=== PATIENT | female | born 1970 | race Caucasian/White ===

== ENCOUNTER 2024-07-06 13:58 | Emergency (ER) | payer BC, SELFPAY ==
[2024-07-06 14:08] VITALS: BP 126/84; PULSE 79; RESP 18; TEMP 36.5; O2SAT 98
--- OUTSIDE RECORDS SUMMARY | 2024-07-06 14:36 | XMS_ITS | Data Portability ---
Author Organization [facility] LAURENHortensia Address [address] [place] [address] Assessment No assessment recorded. Plan of Treatment Reminders Order Date Submit Date Provider Last Modified By Organization Details Last Modified Time Details Appointments None recorded. Lab SARS CoV 2 RNA (COVID-19 ), QL, dancing teacher-PCR, respirato ry specimen - Ligu[place] location please-14 45 2019 020 [facility] (Lab), [address] [place], [address], 0 05:34:04 SARS CoV 2 RNA (COVID-19 ), QL, dancing teacher-PCR, respirato ry specimen - hawi @ 1230 on 12/[email or web address] [place] [address] (Lab), [address], [place], [address], 0 14:43:30 vaginal pathogens panel, JONI+probe , vaginal fluid 2023 024 [facility], [address] [facility], [address], [place], [address], 4 14:14:58 cytology report, thin prep, smear or scraping, cervical or vaginal 2023 024 [facility], [address] [facility], [address], [place], [address], 4 14:13:35 Referral None recorded. Procedures None recorded. Surgeries None recorded. Imaging MAMMO, screening , digital, bilateral 2023 [facility] ([facility]), [address] [place], [address], 4 17:48:17 Medication Orders Prempro 0.45 mg-1.5 mg tablet 2023 024 [facility], [address] [place], [address], 4 11:45:40 conjugate d estrogens 0.625 mg/gram vaginal cream [address] [address] [facility], [address] [place], [address], 4 16:45:08 Patient TargetsNo targets recorded. Patient Instructions Encounter Date Encounter Id Patient Instructions Last Modified By Organization Details Last Modified Time 12/21/2019 [id number] Reviewed the following recommendations: -Stay home and separate from others as much as possible. -Monitor your symptoms and seek medical attention for trouble breathing, persistent chest pain, confusion, or bluish lips or face. -Wear a mask if you must be around other people. -Wash your hands often for 20 seconds with soap and water and clean high-touch surfaces daily -You may discontinue home isolation if your symptoms are improving, it has been 10 days since symptoms started, and you have been fever free for at least 3 days. [email or web address] Not available 12/21/2019 14:42:50 09/01/2023 [id number] Attending Physician Attestation I personally saw and examined the patient with the resident. I have reviewed the documentation and agree with the history, physical findings, work-up, and medical decision making as recorded. Jasbir Adler MD [email or web address] Not available 09/01/2023 11:10:13 Reason for Referral None Reported. Results Created Date Observation Date Name Description Value Unit Range Abnormal Flag Note LastModifiedBy Organization Detail LastModifiedTime 12/13/19 20 12/13/2019 SARS CoV 2 RNA (COVI D-19) , QL, dancing teacher-P CR, respi rator y speci men sars - cov - 2 PCR NEGATI VE mL Not Available [facility] (Lab) [address] [place], [address], 12/15/2019 05:34:04 12/13/19 20 12/13/2019 SARS CoV 2 RNA (COVI D-19) , QL, dancing teacher-P CR, respi rator y speci men covidcom1 COMME NTS: This assay is desig franky to detec t the RdRp and N genes of SARS- CoV-2 using nucle ic acid ampli ficat ion. A negat christine resul t does not precl ude the possi bilit y of 2019- nCoV infec tion since the adequ acy of sampl e colle ction and/o r low viral burde n may resul t in the prese nce of viral nucle ic acids level s below the bart tical sensi tivit y of this test metho d. Not Available [facility] (Lab) [address] [facility], [place], [address], 12/15/2019 05:34:04 12/13/19 20 12/13/2019 SARS CoV 2 RNA (COVI D-19) , QL, dancing teacher-P CR, respi rator y speci men covidcom2 Posit christine resul ts are indic ative of the prese nce of SARS- CoV-2 RNA and do not rule out bacte rial infec tion or co-in fecti on with other virus es. Not Available [facility] (Lab) [address] [facility], [place], [address], 12/15/2019 05:34:04 12/13/19 20 12/13/2019 SARS CoV 2 RNA (COVI D-19) , QL, dancing teacher-P CR, respi rator y speci men covidcom3 Test resul ts shoul d be used along with other clini alysia obser vatio ns, patie nt histo ry, epide miolo gical infor matio n and labor atory data in eliel ramirez the diagn osis. Not Available [facility] (Lab) [address] [place], [address], 12/15/2019 05:34:04 12/13/19 20 12/13/2019 SARS CoV 2 RNA (COVI D-19) , QL, dancing teacher-P CR, respi rator y speci men covidcom4 This test has recei leonel FDA Emerg ency Use Autho rizat ion and has been verif ied by [facility] . This test is only autho rized for the durat ion of the decla ratio n and the circu mstan cameron that exist to justi fy the autho rizat ion of the emerg ency use of in vitro diagn ostic tests for the detec tion of SARS- CoV-2 virus and/o r diagn osis of COVID -19 infec tion under secti on 564 (b) (1) of the Act. 11 U.S.C . 360bb b-3 (b) (1), unles s the autho rizat ion is termi nated or revok ed soone r. Not Available [facility] (Lab) [address] [place], [address], 12/15/2019 05:34:04 12/13/19 20 12/13/2019 SARS CoV 2 RNA (COVI D-19) , QL, dancing teacher-P CR, respi rator y speci men covidcom5 [facility] at[facility] is certi fied under CLIA- 88 as quali fied to perfo rm high compl exity testi ng. This testi ng was perfo rmed in the [facility] [place] [address] (CLIA Licen se #[id number] 5, CAP #[id number], AU-ID #[id number]). Not Available [facility] (Lab) [address] [place], [address], 12/15/2019 05:34:04 12/13/19 20 12/13/2019 SARS CoV 2 RNA (COVI D-19) , QL, dancing teacher-P CR, respi rator y speci men covidcom6 Facts heet for healt hcare provi ders: https ://ww w.fda .gov/ media /1362 56/do wnloa d Facts heet for patie nts: https ://ww w.fda .gov/ media /1362 57/do wnloa d Not Available [facility] (Lab) [address], [place], [address], 12/15/2019 05:34:04 09/01/19 24 09/03/2023 NUSWA B VAGIN ITIS PLUS (VG+) atopobium vaginae Modera te - 1 score Not Available [facility] ([facility]) [address] [facility], [place], [address], 09/03/2023 14:14:58 09/01/19 24 09/03/2023 NUSWA B VAGIN ITIS PLUS (VG+) bvab 2 Low - 0 score Not Available [facility] ([facility]) [address] [facility], [place], [address], 09/03/2023 14:14:58 09/01/19 24 09/03/2023 NUSWA B VAGIN ITIS PLUS (VG+) megasphaera 1 Low - 0 score Calcu late total score by summer g the 3 indiv idual bacte rial vagin osis (BV) marke r score s toget her. Total score is inter prete d as follo ws: Total score 0-1: Indic ates the absen ce of BV. Total score 2: Indet ermin ate for BV. Addit ional clini alysia data shoul d be evalu ated to estab reji a diagn osis. Total score 3-6: Indic ates the prese nce of BV. This test was devel oped and its perfo rmanc e deny cteri stics deter mined by [facility]. It has not been clear ed or appro leonel by the Food and Drug Admin istra tion. Not Available [facility] ([facility]) [address] [facility], [place], [address], 09/03/2023 14:14:58 09/01/19 24 09/03/2023 NUA B VAGIN ITIS PLUS (VG+) marycruz albicans, JONI Negati ve negati ve Not Available [facility] ([facility]) [address] [place], [address], 09/03/2023 14:14:58 09/01/19 24 09/03/2023 NUA B VAGIN ITIS PLUS (VG+) marycruz glabrata, JONI Negati ve negati ve Not Available [facility] ([facility]) [address] [place], [address], 09/03/2023 14:14:58 09/01/19 24 09/03/2023 NUA B VAGIN ITIS PLUS (VG+) trich vag by JONI Negati ve negati ve Not Available [facility] ([facility]) [address] [place], [address], 09/03/2023 14:14:58 09/01/19 24 09/03/2023 NUA B VAGIN ITIS PLUS (VG+) chlamydia trachomatis, JONI Negati ve negati ve Not Available [facility] ([facility]) [address] [place], [address], 09/03/2023 14:14:58 09/01/19 24 09/03/2023 NUA B VAGIN ITIS PLUS (VG+) neisseria gonorrhoeae, JONI Negati ve negati ve Not Available [facility] ([facility]) [address] [place], [address], 09/03/2023 14:14:58 09/01/19 24 09/03/2023 IGP, APTIM A HPV, RFX 16/18 ,45 HPV aptima Negati ve negati ve This nucle ic acid ampli ficat ion test detec ts fourt een high- risk HPV types (16,1 8,31, 33,35 ,39,4 5,51, 52,56 ,58,5 9,66, 68) witho ut diffe renti ation . Not Available [facility] ([facility]) [address] [facility], [place], [address], 09/04/2023 14:13:35 09/01/19 24 09/04/2023 IGP, APTIM A HPV, RFX 16/18 ,45 diagnosis: Drake FREED FOR INTRA EPITH ELIAL LESIO N OR MAGGIE KELLEY . Not Available [facility] ([facility]) [address] [facility], [place], [address], 09/04/2023 14:13:35 09/01/19 24 09/04/2023 IGP, APTIM A HPV, RFX 16/18 ,45 specimen adequacy: Drake valero Satis facto roc for evalu ation . Endoc ervic al and/o r squam ous metap lasti c cells (endo cervi alysia compo nent) are prese nt. Not Available [facility] ([facility]) [address] [facility], [place], [address], 09/04/2023 14:13:35 09/01/19 24 09/04/2023 IGP, APTIM A HPV, RFX 16/18 ,45 clinician provided ICD10: Drake valero N89.8 Z12.4 Not Available [facility] ([facility]) [address] [facility], [place], [address], 09/04/2023 14:13:35 09/01/19 24 09/04/2023 IGP, APTIM A HPV, RFX 16/18 ,45 performed by: Sol Arcos (ASCP ) Not Available [facility] ([facility]) [address] [place], [address], 09/04/2023 14:13:35 09/01/19 24 09/04/2023 IGP, APTIM A HPV, RFX 16/18 ,45 . . Not Available [facility] ([facility]) [address] [place], [address], 09/04/2023 14:13:35 09/01/19 24 09/04/2023 IGP, APTIM A HPV, RFX 16/18 ,45 note: Commen t The Pap smear is a scree kevin test desig franky to aid in the detec tion of muna ligna nt and malig nant condi tions of the uteri ne cervi x. It is not a diagn ostic proce dure and shoul d not be used as the sole means of detec ting cervi alysia cance r. Both false -posi tive and false -nega tive repor ts do occur . Not Available [facility] ([facility]) [address] [place], [address], 09/04/2023 14:13:35 09/01/19 24 09/04/2023 IGP, APTIM A HPV, RFX 16/18 ,45 test methodology: Commen t This liqui d based ThinP rep(R ) pap test was scree franky with the use of an image guide ovi james. Not Available [facility] ([facility]) [address] [place], [address], 09/04/2023 14:13:35 09/01/19 24 09/04/2023 IGP, APTIM A HPV, RFX 16/18 ,45 HPV genotype reflex Commen t Crite taqueria not met, HPV Genot ype not perfo rmed. Not Available [facility] ([facility]) [address] [place], [address], 09/04/2023 14:13:35 03/29/20 24 03/29/2024 MAMMO , scree kevin, digit al, bilat eral No observ ation record ed. [facility] [address] [place], [address], 04/06/2024 16:22:17 Result Notes None recorded. Problems Name Problem SNOMED Code Status Onset Date Resolution Date Notes Provider Name and Address Organization Details Recorded Time Gynecologic examination Active 2023 Laya Berkowitz MD Attn: Wali james,[address] [facility], [place], [address], [facility] 4 00:42:55 Menopausal syndrome 374724476 Active 2023 Laya Berkowitz MD Attn: Wali james,[address] [facility], [place], [address], [place] [facility] 4 00:51:23 Screening for malignant neoplasm of cervix Active 2023 Laya Berkowitz MD Attn: Wali ramirez,[address] [facility], [place], [address], [facility] 4 00:42:58 Vaginal discharge 039090094 Active 2023 Laya Berkowitz MD Attn: Wali ramirez,[address] [facility], [place], [address], [facility] 4 00:51:21 Screening mammography Active 2023 Laya Berkowitz MD Attn: Wali ramirez,[address] [facility], [place], [address], [facility] 4 00:43:00 Migraine 73181445 Active 2023 Laya Berkowitz MD Attn: Wali ramirez,[address] [place], [address], [facility] 4 00:51:27 Dysuria 10158632 Active 2023 Laya Berkowitz MD Attn: Wali ramirez,[address] [place], [address], [facility] 4 00:51:07 Problem Notes None recorded. Procedures Surgical History None recorded. Imaging Results Imaging Date Name Status LastModified by Organiz ation Details LastModified Time 03/29/2024 MAMMO, screening, digital, bilateral completed [facility] [address], [place], [address], 04/06/2024 16:22:17 Procedure Notes None recorded. Medical Equipment None Reported. Allergies No known drug allergies Medications Name Sig Start Date Stop Date Status Note LastModified by Organization Details LastModified Time quetiapine 25 mg tablet TAKE 1 TABLET BY MOUTH TWICE DAILY AT 8AM AND 12PM active Not Available Not Available No t Available bupropion HCl SR 150 mg tablet,12 hr sustained-r elease TAKE 1 TABLET BY MOUTH TWICE DAILY active Not Available Not Available No t Available lamotrigine 200 mg tablet active Not Available Not Available Not Available pravastatin 40 mg tablet TAKE 1 TABLET BY MOUTH ONCE DAILY active Not Available Not Available No t Available meloxicam 15 mg tablet active Not Available Not Available Not Available clonazepam 0.5 mg tablet TAKE 1 TABLET BY MOUTH TWICE DAILY NEEDED. MUST LAST 30 DAYS active Not Available Not Available No t Available clonazepam 1 mg tablet 08/31 completed Not Available Not Available Not Available atenolol 25 mg tablet TAKE 1 TABLET BY MOUTH ONCE DAILY 08/31 completed Not Available Not Available Not Available penicillin V potassium 500 mg tablet TAKE 1 TABLET BY MOUTH 4 TIMES DAILY UNTIL GONE active Not Available Not Available No t Available acetaminoph en 300 mg-codeine 30 mg tablet TAKE 1 TO 2 TABLETS BY MOUTH EVERY 4 TO 6 HOURS NEEDED FOR PAIN. MAX OF 10 TABLETS PER DAY. active Not Available Not Available No t Available quetiapine 100 mg tablet active Not Available Not Available Not Available bupropion HCl 100 mg tablet 08/31 completed Not Available Not Available Not Available amoxicillin 875 mg tablet active Not Available Not Available Not Available conjugated estrogens 0.625 mg/gram vaginal cream insert 1 applicato rful (1 gram) nightly, Apply vaginally for 3 weeks then take 1 week off 2023 active Not Available Not Available Not Avai lable Lamictal 100 mg tablet Take 1 tablet every day by oral route. active Not Available Not Available No t Available montelukast 10 mg tablet active Not Available Not Available Not Available levothyroxi ne 112 mcg tablet TAKE 1 TABLET BY MOUTH IN THE MORNING ON AN EMPTY STOMACH active Not Available Not Available No t Available Ventolin HFA 90 mcg/actuati on aerosol inhaler 08/31 completed Not Available Not Available Not Available atomoxetine 40 mg capsule TAKE 1 CAPSULE BY MOUTH TWICE DAILY active Not Available Not Available No t Available atomoxetine 60 mg capsule TAKE 1 CAPSULE BY MOUTH ONCE DAILY IN THE MORNING active Not Available Not Available No t Available Prempro 0.45 mg-1.5 mg tablet Take 1 tablet every day by oral route for 30 days, for menopausa l symptoms. 2023 active Not Available Not Available Not Avai lable Seroquel XR 200 mg tablet,exte nded release Take 1 tablet every day by oral route. active Not Available Not Available No t Available desvenlafax ine succinate ER 100 mg tablet,exte nded release 24 hr Take 1 tablet every day by oral route. active Not Available Not Available No t Available Vitals Date Recorded Body height Provider Name an d Address Organization Details Last Updated DateTime 09/01/2023 167.64 cm Kevin Zavala MA [facility] 2023 10:24:54 Date Recorded Body mass index (BMI) Body weight Provider Name and Address Organization Details Last Updated DateTime 09/01/2023 28.9 kg/m2 16542.03 g Kevin Zavala MA [facility] 09/01/2023 10:25:00 Date Recorded Respiratory rate Provider Name a nd Address Organization Details Last Updated DateTime 09/01/2023 18 /min Kevin Zavala MA [facility] 09/01/2023 10:25:03 Date Recorded Oxygen saturation Oxygen saturation in Arterial blood by Pulse oximetry Provider Name and Address Organization Details Last Updated DateTime 09/01/2023 99 % 99 % Kevin Zavala MA [facility] 09/01/2023 10:25:49 Date Recorded Heart rate Provider Name an d Address Organization Details Last Updated DateTime 09/01/2023 89 /min Kevin Zavala MA [facility] 2023 10:25:50 Date Recorded Systolic blood pressure Diastolic blood pressure Provider Name and Address Organization Details Last Updated DateTime 09/01/2023 128 mm[Hg] 82 mm[Hg] Kevin Zavala MA [facility] 09/01/2023 10:26:31 Social History Question Answer Notes LastModified by Organizat ion Details LastModified Time Tobacco Smoking Status Former Smoker Kevin Zavala MA null, [place] - [facility] 09/01/2023 10:23:04 What Is Your Level Of Alcohol Consumption? None Information not available 09/01/2023 Are You Blind Or Do You Have Difficulty Seeing? Yes Information not available 09/01/2023 What Is Your Level Of Caffeine Consumption? Occasional Information not available 09/01/2023 In The 14 Days Before Symptom Onset, Have You Had Close Contact With A Laboratory-confir med COVID-19 While That Case Was Ill? No Information not available 09/01/2023 In The 14 Days Before Symptom Onset, Have You Had Close Contact With A Person Who Is Under Investigation For COVID-19 While That Person Was Ill? No Information not available 09/01/2023 Have You Been To An Area Known To Be High Risk For COVID-19? No Information not available 09/01/2023 Are You Deaf Or Do You Have Serious Difficulty Hearing? No Information not available 09/01/2023 What Type Of Diet Are You Following? REGULAR Information not available 09/01/2023 Are There Any Guns Present In Your Home? No Information not available 09/01/2023 What Was The Date Of Your Most Recent Tobacco Screening? 09/01/2023 Information not available 09/01/2023 How Many Children Do You Have? 3 Information not available 09/01/2023 What Is Your Current Pack Years? 10-19packyears Information not available 09/01/2023 Do You Use Protection During Sex? No Information not available 09/01/2023 What Is Your Relationship Status? Other Information not available 09/01/2023 Do You Use Your Seat Belt Or Car Seat Routinely? Yes Information not available 09/01/2023 Are You Sexually Active? Yes Information not available 09/01/2023 Do You Have Smoke And Carbon Monoxide Detectors In Your Home? Yes Information not available 09/01/2023 At What Age Did You Start Smoking Tobacco? 14 Information not available 09/01/2023 Are You Passively Exposed To Smoke? Yes Information no t available 09/01/2023 How Much Tobacco Do You Smoke? No Information not available 09/01/2023 Do You Use Any Illicit Or Recreational Drugs? No Information not available 09/01/2023 Do You Use Sunscreen Routinely? Yes Information not available 09/01/2023 Has Tobacco Cessation Counseling Been Provided? No Information not available 09/01/2023 Do You Or Have You Ever Used Any Other Forms Of Tobacco Or Nicotine? No Information not available 09/01/2023 Sex: Female Functional Status Question Answer Note LastModified by Organizat ion Details LastModified Time Are you able to care for yourself? 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 Family History Nothing Reported. Medical History No medical history recorded. Gynecological History Statement/Question Response Menses Monthly N Date of Last Pap Smear Current Control Method Menopause Date of LMP Obstetrics History GPAL:G 3 P 3 0 0 3 Type Value Multiple Births 0 Full Term 3 Induced 0 Spontaneous 0 Premature 0 Living 3 Ectopics 0 Total 3 Immunizations Vaccine Type Date Status Note Provider Nam e and Address Organization Details Recorded Time MMR 07/14/2017 completed JASBIR ADLER MD Attn: [address] [place], [place], [address] [place] [address], [place] [facility] 09/01/2023 11:01:39 MMR 08/15/2017 completed JASBIR ADLER MD Attn: [address] [place], [place], [address] [place] [address], [place] [facility] 09/01/2023 11:01:39 COVID-19, mRNA, LNP-S, PF, 30 mcg/0.3 mL dose 07/06/2020 completed JASBIR ADLER MD Attn: [address] [place], [address], [place] [facility] 09/01/2023 11:01:39 COVID-19, mRNA, LNP-S, PF, 30 mcg/0.3 mL dose 07/27/2020 completed JASBIR ADLER MD Attn: Accounting,[address], [place], [address], [place] [facility] 09/01/2023 11:01:39 Tdap 07/14/2017 completed JASBIR ADLER MD Attn: [address]ing[address] [facility], [place], [address], [place] [facility] 09/01/2023 11:01:39 Hep B, adult 07/14/2017 completed JASBIR ADLER MD Attn: Accounting,[address], [place], [address], [place] [facility] 09/01/2023 11:01:39 Hep B, adult 08/15/2017 completed JASBIR ADLER MD Attn: Accounting[address] [facility], [place], [address], [place] [facility] 09/01/2023 11:01:39 Hep B, adult 01/13/2018 completed JASBIR ADLER MD Attn: Accounting[address] [facility], [place], [address], [place] [facility] 09/01/2023 11:01:39 Influenza, split virus, quadrivalent, PF 03/21/2015 completed JASBIR ADLER MD Attn: Accounting[address] [facility], [place], [address], [place] [facility] 09/01/2023 11:01:39 Past Encounters Encounter ID Performer Location Encounter Start Date Encounter Closed Date Diagnosis/Indication Diagnosis SNOMED-CT Code Diagnosis ICD10 Code Diagnosis Note [id number] Tammi Melo[facility] [place] [address] [place] [id number] 12/13/2019 12:35:50 12/14/2019 16:51:29 Exposure to SARS-CoV-2 801426294 Z20.787 [id number] JUAN CARLOS AGUILAR[facility] [place] [address] [place] [id number] 12/21/2019 12:54:33 12/22/2019 09:37:22 Exposure to SARS-CoV-2 885590560 Z20.876 [id number] JASBIR ADLER MD [facility] ([employer]PER[employer]) [address] [place] [phone] 09/01/2023 09:49:15 09/29/2023 17:21:47 Menopausal syndrome 431527415 N95.9 The patient reports low energy, losing hair, low concentrat ion, hot flashes, mood swings, dryness, dysuria, and low libido. LMP 08/14/22, now menopausal . Requests medication for management of symptoms. Given combinatio n of systemic and local symptoms, will pursue systemic and local treatment. - prempro 0.45 mg - 1.5 mg daily- conjugated estrogen vaginal cream Migraine 95521780 G43.00 9 Daily headaches, helped by ibuprofen. Located in front of head, associated with throbbing blurred vision, photophobi a, and phonophobi a. Got contact lenses recently with no improvemen t. 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 Addressed menopausal symptoms, screening mammogram, screening pap smear, vaginal discharge, dysuria. Plan to follow-up with PCP for concern of headaches, itchy spots on arms, and leg aching. Screening for malignant neoplasm of cervix 176446179 Z12.4 Patient is due for pap smear with HPV testing as per USPFTF guidelines . Vaginal discharge 196260 006 N89.8 DDX BV, yeast, contact irritation , physiologi c discharge. - Test Nuswab vaginitis Dysuria 70058020 R30.0 DDX UTI, vaginitis, vaginal atrophy. Lack of suprapubic tenderness and systemic sick symptoms suggestive of discomfort secondary to atrophy of mucosa over UTI. - management of menopausal syndrome as above Screening mammography 24 [id number] Z12.31 Patient is due for bilateral screening mammogram as per USPSTF guidelines . Health Concerns Section Related Observation LastModified by Organization Detai ls LastModified Time None Recorded Concern Status LastModified by Organization Details LastModified Time None Recorded Advance Directives Directive None Recorded Payers Encounter Date Sequence Insurance Name Policy Number Policy Boyle Covered Member ID Boyle Member ID Guarantor Name 12/13/2019 1 [place] [id number] Kassi Galeanas [id number] Kassi Ashley 12/21/2019 1 [place] [id number] Kassi Ashley [id number] Kassi Ashley 09/01/2023 1 [place] [id number] Kassi Ashley [id number] Kassi Ashley Notes Date Note Type Note Provider Name and Address Organization Details Recorded Time 12/13/2019 text/html COVID ScreeningReported bypatient.Onset/Durati on of fever:no fever Associated Symptoms:no cough; no shortness of breathNotes:No symptoms but positive exposure Tammi sutton [facility] 12/13/2019 15:24:06 12/21/2019 text/html COVID ScreeningReported bypatient.Onset/Durati on of fever:no fever Associated Symptoms:no cough; no shortness of breathCOVID-19 Symptoms October 2019Reported bypatient.COVID-19 Signs and Symptomscough resolved; fever resolved; shortness of breath resolved; chills resolved; repeated shaking with chills resolved; muscle pain resolved; headache resolved; sore throat resolved; loss of taste or smell resolved; vomiting or diarrhea resolved; fatigue resolved; anorexia resolved Contacts and Exposureclose contact with a confirmed or suspected case of COVID-19; patient is healthcare personnel Associated Symptoms:no sputum production; no wheezing; no runny nose; no vomiting; no diarrhea; no body aches; no nausea; no change in mental status; no hypotension; no tachycardia pt works in a ltc facility with multiple positive cases and denies symptoms TERRY MCGREGOR NP Attn: Accounting,[address] [facility], [place], [address], [facility] 12/21/2019 14:43:47 09/01/2023 text/html Kassi is a pleasant 52 y/o (kids age 16, 17, 27) with a history of asthma and complex psychiatric history who presents today for a routine SALES REPRESENTATIVE MEATS exam. Patient's last obstetrics gyn physician exam was many years ago where Pap that was unknown. The patient reports low energy, losing hair, low concentration, hot flashes, mood swings, dryness, and low libido. LMP 08/14/22, now menopausal. Requests medication for management of symptoms. No discharge, itching, burning. No abdominopelvic pain or any change in her bowel habits. Some burning with urination. Daily headaches, helped by ibuprofen. Located in front of head, associated with throbbing blurred vision, photophobia, and phonophobia. Got contact lenses recently with no improvement. Multiple small red spots on arms, itchy. Legs throbbing with pain intermittently. She works as a MACHINE ATTENDANT in memory care. Long-term relationship with 1 man, feels safe. Uses CBD occasionally, no other drugs or alcohol. Distant smoking history, less than one pack daily from age 11 to 26. PCP is Deion Rankin. JASBIR ADLER MD Attn: Accounting,[address] [place], [address], [facility] 09/16/2023 16:45:54 OBGyn Episode No OBEpisode recorded.
--- OUTSIDE RECORDS SUMMARY | 2024-07-06 14:36 | XMS_ITS | Referral Summary ---
Author Organization [facility] Address [address] [place] [address] Care Team Providers Care Library Sales Consultant Name Role Phone Jeb Rankin NP Primary Care Provider [phone] Allergies No known active allergies Medications LITHIUM 300 mg capsule 10/08/19 18 Active atenolol (TENORMIN) 25 mg tablet TAKE ONE TABLET BY MOUTH ONCE DAILY IN THE MORNING 07/18/19 16 Active pravastatin (PRAVACHOL) 40 mg tablet 10/08/19 18 Active buPROPion (WELLBUTRIN) 100 mg tablet 10/08/19 18 Active clonazePAM (KlonoPIN) 0.125 mg disintegrating tablet Take 0.125 mg by mouth 2 (two) times a day as needed for seizures. Active azithromycin (ZITHROMAX) 250 mg tablet Take 2 tablets the first day, then 1 tablet daily for 4 days 6 tablet 10/24/19 18 Active Additional Information Patient not taking.Reported on 11/01/2021 QUEtiapine XR (SEROquel XR) 150 mg 24 hr tablet 10/17/19 22 Active desvenlafaxine ER 50 mg 24 hr tablet 10/17/19 22 Active lamoTRIgine (LaMICtal) 200 mg tablet 10/17/19 22 Active multivitamin powder in packet Take 1 tablet by mouth Active cyanocobalamin (Vitamin B-12) 1,000 mcg/mL injection 01/22/20 16 Active ascorbic acid (VITAMIN C) 500 mg tablet,chewable Take 500 mg by mouth daily before breakfast Active Active Problems Problem Noted Date Diagnosed Date Memory loss 11/01/2021 Social History Tobacco Use Types Packs/Day Years Used Date Smoking Tobacco: Former Smokeless Tobacco: Never Alcohol Use Standard Drinks/Week Comments No 0 (1 standard drink = 0.6 oz pur e alcohol) Personal Safety Answer Date Recorded Getting School Help Needed Not on file 08/22 Comments No Sex and Gender Information Value Date Recorded Sex Assigned at Not on file 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 Gender Identity Not on file Sexual Orientation Not on file Last Filed Vital Signs Vital Sign Reading Time Taken Comments Blood Pressure 130/88 11/01/2021 8:54 AM CDT Pulse 80 11/01/2021 8:54 AM CDT Temperature 37 ??C (98.6 ??F) 10/23/2017 8:02 AM CDT Respiratory Rate 21 10/23/2017 9:00 AM CDT Oxygen Saturation 100% 10/23/2017 9:00 AM CDT Inhaled Oxygen Concentration - - Weight 78.5 kg (173 lb) 11/01/2021 8:54 AM CDT Height 167.6 cm (5' 6 ) 11/01/2021 8:54 AM CDT Body Mass Index 27.92 11/01/2021 8:54 AM CDT Plan of Treatment Not on file Insurance [employer] [place] [employer] [place] Care Teams Library Sales Consultant Relationship Specialty Start Date End Date Jeb Rankin NP [address] [place] [address] [place] [address] PCP - General Pain Management 11/01/21
--- OUTSIDE RECORDS SUMMARY | 2024-07-06 14:36 | XMS_ITS | Clinical Summary ---
Author Organization [facility] Address [address] [place] [address] Care Team Providers Care Septic Pump Truck Driver Name Role Phone Jeb Rankin NP Primary Care Provider [phone]- [phone] Allergies No known active allergies Medications LITHIUM [...] Noted Date Diagnosed Date Memory loss 11/01/2021 Surgical History Surgery Date Site/Laterality Comments SPINE SURGERY Medical History Medical History Date Comments Asthma Headache, tension-type Migraine Hyperlipidemia Hypoactive thyroid Bipolar 1 disorder (HCC) Depression Anxiety Family History Medical History Relation Name Comments Hypertension Father Relation Name Status Comments Father Social History Tobacco Use Types Packs/Day Years [...] on file 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 Gender Identity Not on file Sexual Orientation Not on file Obstetrics History Last Filed Vital Signs Vital Sign Reading [...] 11/01/2021 8:54 AM CDT Plan of Treatment Health Maintenance Due Date Last Done Comments Breast Cancer Screening-Mammogram 1969 Cervical Cancer Screening 1969 Colon Cancer Screening-Colonoscopy 1969 Depression Screening 1969 Hepatitis C Screening 1969 Regular Well Visit/Exam 18-64 10/06/1987 Zoster Vaccine (1 of 2) 10/06/2019 Covid-19 Vaccine (3 - 2023-2 5 season) 2024 07/27/2020, 07/06/2020 Influenza Vaccine (#1) 2024 03/21/2015 DTaP/Tdap/Td Vaccine (2 - Td or Tdap) 07/14/2027 07/14/2017 Pneumococcal vaccine <65 Aged Out No longer eligible based on patient's age to complete this topic Insurance [place] Care Teams Septic Pump Truck Driver Relationship Specialty Start Date End Date Jeb Rankin NP [address] [place] [address] [place] [address] PCP - General Pain Management 11/01/21
--- NOTE | 2024-07-06 15:35 | ED_ITS ---
HPI - General Adult General Chief complaint: Eye Problems Stated complaint: Left Eye Problem Source: patient Mode of arrival: ambulatory Limitations: no limitations History of Present Illness HPI narrative: Patient presents for evaluation of left eye irritation. She reports redness, thick yellow drainage, and blurred vision in eye for last 3-4 days. She does wear contacts but has taken the mouth. She is not wearing glasses. No recent sick contacts or exposures to have conjunctivitis to her knowledge. She denies any fever, chills, nasal congestion, sore throat, otalgia, cough or other infectious symptoms. Related Data Home Medications ?Medication ?Instructions ?Recorded ?Confirmed ?Last Taken ?Type atenolol 25 mg tablet mg 07/06/24 Unknown History atomoxetine 25 mg capsule mg PO 07/06/24 Unknown History atomoxetine 40 mg capsule mg PO 07/06/24 Unknown History bupropion HCl 300 mg 24 hr tablet, mg PO 07/06/24 Unknown History extended release clonazepam 0.5 mg tablet mg 07/06/24 Unknown History fluoxetine 40 mg capsule mg 07/06/24 Unknown History lamotrigine 100 mg tablet mg 07/06/24 Unknown History levothyroxine 112 mcg tablet mcg 07/06/24 Unknown History pravastatin 40 mg tablet mg 07/06/24 Unknown History propranolol 120 mg capsule,24 mg PO 07/06/24 Unknown History hr,extended release quetiapine 150 mg tablet,extended mg PO 07/06/24 Unknown History release 24 hr quetiapine 300 mg tablet,extended mg PO 07/06/24 Unknown History release 24 hr Allergies Allergy/AdvReac Type Severity Reaction Status Date / Time No Known Allergies Allergy Unverified 07/06/24 14:00 Review of Systems Review of Systems: CONSTITUTIONAL: Denies fever, chills, or sweats. EYES: Reports redness to left eye with thick yellow drainage. Reports blurred vision onleft ENT: Denies rhinorrhea, congestion, sore throat, or otalgia. CARDIOVASCULAR: Denies chest pain, palpitations, or edema. RESPIRATORY: Denies cough or dyspnea. GASTROINTESTINAL: Denies abdominal pain, nausea, vomiting, or diarrhea. GENITOURINARY: Denies dysuria or hematuria. SKIN: Denies rash or itching. MUSCULOSKELETAL: Denies back pain, joint pain, or myalgia. NEUROLOGIC: Denies headache, numbness, dizziness, or weakness. PSYCHIATRIC: Denies anxiety or depression. [facility] Past Medical History Medical History Hypertension Thyroid disorder Bipolar disorder Surgical History Surgical History No pertinent past surgical history Family History Family History Mother Family history non-contributory Social History Social History Gender identity (if verbalized by the patient): Female Spiritual care concerns: No Exam Narrative: GENERAL: Well-appearing, well-nourished, and in no acute distress. HEAD: Normocephalic, atraumatic. EYES: PERRLA and EOMI. Left conjunctival injection. There is thick yellow drainage from left eye ENT: Nares clear, no rhinorrhea or epistaxis. Mucous membranes moist. Oropharynx without tonsillar hypertrophy exudate or other lesions. Bilateral TMs pearly hill nonbulging NECK: Supple. No adenopathy or masses. No carotid bruits or JVD CHEST: Clear to auscultation. No respiratory distress. No wheezes rales or rhonchi HEART: Regular rate and rhythm. No murmur heard. Normal peripheral pulses. ABDOMEN: Soft, nontender, nondistended, normal active bowel sounds. EXTREMITIES: Normal range of motion. No edema. SKIN: Warm, dry, no rash. NEURO: No focal deficits. Alert and oriented x3. PSYCH: Normal mood and affect. Course Course Emergency Course: This is a 53-year-old female who presented for evaluation of irritation to the left eye with redness, thick drainage, blurred vision. Her exam is consistent with conjunctivitis. The contacts out. Wear glasses. Start ofloxacin. Increase hydration. Tdrs-[id number]-fmookyt agents for symptom management. Follow up with primary provider. Go to the ER for worsening symptoms. Patient in agreement with plan of care. Level of Care: Express Care Visit Vital Signs Vital signs: Vital Signs Temperature 36.5 C 07/06/24 14:08 Pulse Rate 79 07/06/24 14:08 Respiratory Rate 18 07/06/24 14:08 Blood Pressure 126/84 07/06/24 14:08 Pulse Oximetry 98 07/06/24 14:08 Oxygen Delivery Room Air 07/06/24 14:08 Temperature 36.5 C 07/06/24 14:08 Pulse Rate 79 07/06/24 14:08 Respiratory Rate 18 07/06/24 14:08 Blood Pressure 126/84 07/06/24 14:08 Pulse Oximetry 98 07/06/24 14:08 Oxygen Delivery Room Air 07/06/24 14:08 Medical Decision Making Vital Signs Vital Signs: Vital Signs Temperature 36.5 C 07/06/24 14:08 Pulse Rate 79 07/06/24 14:08 Respiratory Rate 18 07/06/24 14:08 Blood Pressure 126/84 07/06/24 14:08 Pulse Oximetry 98 07/06/24 14:08 Oxygen Delivery Room Air 07/06/24 14:08 Temperature 36.5 C 07/06/24 14:08 Pulse Rate 79 07/06/24 14:08 Respiratory Rate 18 07/06/24 14:08 Blood Pressure 126/84 07/06/24 14:08 Pulse Oximetry 98 07/06/24 14:08 Oxygen Delivery Room Air 07/06/24 14:08 Discharge Plan Discharge Clinical Impression: Acute bacterial conjunctivitis Patient Disposition: Home, Self-Care Condition: Stable Instructions: Antibiotic Form, Conjunctivitis (ED) Patient Language: Tajik Prescriptions: New ofloxacin 0.3 % drops See Rx Instructions .ROUTE .COMPLEX Qty: 10 0RF Rx Instructions: put 1-2 drps into affected eye(s) every 2-4 h x 2 days, then 1-2 drps 4 times/day days 3-7 No Action fluoxetine 40 mg capsule pravastatin 40 mg tablet clonazepam 0.5 mg tablet atenolol 25 mg tablet propranolol 120 mg capsule,extended release 24 hr PO lamotrigine 100 mg tablet levothyroxine 112 mcg tablet atomoxetine 25 mg capsule PO atomoxetine 40 mg capsule PO bupropion HCl 300 mg tablet extended release 24 hr PO quetiapine 300 mg tablet extended release 24 hr PO quetiapine 150 mg tablet extended release 24 hr PO Follow-up/Referrals: Chucho,Jeb Merritt APRN [Primary Care Provider] - Time of Disposition: 15:32
== END 2024-07-06 15:35 | disposition home or self-care (01) ==
PROVIDERS: Emergency Provider Nurse Practitioner; PCP Nurse Practitioner
DX: H10.32 Unspecified acute conjunctivitis, left eye (principal); I10 Essential (primary) hypertension; F31.9 Bipolar disorder, unspecified; E07.9 Disorder of thyroid, unspecified
CPT/HCPCS: 99203; G0463